=== PATIENT | female | born 1960 | race Hispanic/Latino ===

== ENCOUNTER 2017-12-19 03:10 | Inpatient (IN) | payer SELFPAY ==
[2017-12-19] MEDS ORDERED: Azithromycin 500 MG VIAL ONE (06:01)
[2017-12-19] MEDS ORDERED: Calcium Carbonate 500 MG ChewTAB PO PRN (07:46)
[2017-12-19] MEDS ORDERED: Acetaminophen 325 MG TAB PO PRN (07:46)
[2017-12-19] MEDS ORDERED: Ondansetron ODT 4 MG TAB PO PRN (07:46)
[2017-12-19] MEDS ORDERED: Mag-Al 1200 mg/1200 mg/30 ML UDCUP PO PRN (07:46)
[2017-12-19] MEDS ORDERED: Senokot 8.6 MG TAB PO PRN (07:46)
[2017-12-19] MEDS ORDERED: Ondansetron PF 4 MG/2 ML Vial IVP PRN (07:46)
[2017-12-19 08:00] VITALS: BMI 37.8
[2017-12-19] MEDS ORDERED: Prevnar 13-Val Conj/PF 0.5 ML SYRINGE IM ONE (08:15)
[2017-12-19] MEDS ORDERED: FLU VACC QS2017-18 36 mo. & older 0.5 ML SYRINGE IM ONE (08:15)
[2017-12-19] MEDS: Sodium Chloride 0.9% 1,000 ML IV SCH ×2 (09:05→18:06)
[2017-12-19] MEDS: cefTRIAXone\\ROCEPHIN 2 GM in Sodium Chloride 0.9% 100 ML IVPB SCH (09:11)
[2017-12-19 09:47] LABS: Clarity CLOUDY (Clear); Leukocyte Small (Negative); Nitrite Negative (Negative); Protein, Urine (Dipstick) Trace mg/dL (Neg-Trace); Specific Gravity, Urine 1.021 (1.002-1.036); pH, Urine 5.5 (5.0-9.0)
[2017-12-19 09:48] LABS: Bilirubin Negative (Negative); Blood, Urine Negative (Negative); Glucose, Urine (Dipstick) Negative (Negative)
[2017-12-19 09:49] LABS: Bacteria/HPF 2+ HPF (None Seen); Squamous Epithelial 21-50 HPF (0-3)
[2017-12-19 10:00] LABS: Legionella Urinary Ag Negative (Negative); Strep pneumo Urine Ag NEGATIVE (NEGATIVE)
[2017-12-19] MEDS ORDERED: hydrALAZINE 20 MG/ML VIAL SLOW IVP PRN (10:18)
[2017-12-19] MEDS ORDERED: cloNIDine 0.1 MG TAB PO PRN (10:18)
[2017-12-19 10:20] LABS: Hyaline Casts/LPF 0-3 HYALINE CAST LPF (0-3 Hyaline); Other Casts/LPF None Seen LPF (0-3 Hyaline)
[2017-12-19] MEDS ORDERED: Oseltamivir 75 MG CAP PO SCH (10:30)
[2017-12-19] MEDS: guaiFENesin ER 600 MG TAB PO SCH ×2 (10:52→21:10)
--- NOTE | 2017-12-19 11:09 | HP ---
PRIMARY CARE PROVIDER: None. The patient does not have one. CHIEF COMPLAINT: Worsening shortness of breath, fever, chills, body aches and cough. HISTORY OF PRESENTING ILLNESS: Ms. Albert is a 57-year-old female with history of asthma w ho has not been seen by any physician in multiple years; came to the [place] [facility] with the a batool-mentioned complaint. History is mainly obtained by the patient herself who is a very poor histo ewa, and supplemented by the electronic medical records. She presented to the [place] [facility] last night for complaints of one week duration of fever, chills, cough , and worsening shortness of breath. She has no inhalers or any medications for asthma at home and h as been progressively getting worse. She also endorses cough and significant pain in the chest going to her back with coughing. She reports high grade fevers. She lives with her boyfriend and dabene yane and denies any sick contacts. In the [facility], she was somewhat hypoxic, but otherwise hemodynamically stable. Initia l examination and evaluation found right lower lobe pneumonia. She was given IV antibiotic and was t ransferred to the emergency room for further evaluation and now she is being admitted with pneumonia and hypoxia secondary to that with respiratory distress. PAST MEDICAL HISTORY: Asthma. PAST SURGICAL HISTORY: Cholecystectomy and section. PSYCHIATRIC HISTORY: Depression. SOCIAL HISTORY: She lives with her boyfriend and her daughter. She says that she started working ea [employer] this week, but has not been able to return. She is uninsured and does not have a primary care physician. She denies any drug, alcohol or tobacco abuse. Nobody smokes around her in the house eit her. FAMILY HISTORY: No significant family history of premature coronary artery disease or stroke, diabet es or hypertension. MEDICATIONS: She is not on any medications at this time. ALLERGIES: No known medication allergies. REVIEW OF SYSTEMS: It is negative except for those mentioned in the history and physical. Constitutional: Weight loss or gain, ability to conduct usual activities. Skin: Rash, itching. Eyes: Double vision, pain. ENT/Mouth: Nose bleeding, neck stiffness, pain, tenderness. Cardiovascular: Palpitations, dyspnea on exertion, orthopnea. Respiratory: Shortness of breath, wheezing, cough, hemoptysis, fever or night sweats. Gastrointestinal: Poor appetite, abdominal pain, heartburn, nausea, vomiting, constipation, or diarrhea. Genitourinary: Urgency, frequency, dysuria, nocturia. Musculoskeletal: Pain, swelling. Neurologic/Psychiatric: Anxiety, depression. Allergy/Immunologic: Skin rash, bleeding tendency. PHYSICAL EXAMINATION: VITAL SIGNS: Upon presentation to our emergency room include blood pressure 115/60, pulse of 88, res pirations 24, temperature 98.4 and saturating 94% on 2 liters oxygen. GENERAL: She has visible mild respiratory distress, especially with conversation. She is easily win ded with talking small sentences. She has no pursing of the lips. She has no cyanosis. She is awak e, alert and oriented x3. HEENT: Mucous membrane is moist and pink. No oropharyngeal exudate or erythema. Head is normocepha lic and atraumatic. Pupils are equal and reactive to light and accommodation. Extraocular movements intact. NECK: Supple without any lymphadenopathy, JVD or bruit. CHEST: Evaluation shows some decreased breath sounds at bases and mild wheezing without any rales or crackles. CARDIOVASCULAR: Rate and rhythm is regular without any murmur, rubs or gallops. ABDOMEN: Soft, nontender and nondistended with positive bowel sounds. EXTREMITIES: Free of any cyanosis, clubbing, or edema. NEUROLOGIC: Nonfocal. SKIN: Free of any rashes or bruises. Feels warm and dry to touch. PSYCHIATRIC: Normal affect. Awake, alert and oriented x3. LABORATORY AND IMAGING DATA: CBC shows WBCs at 18,000 with 77% neutrophils, otherwise unremarkable. Serum chemistries show blood sugar of 151, AST 52, ALT 90, otherwise unremarkable. Her urinalysis s hows some ketones, small leukocyte esterase, 11-20 wbc's, multiple squamous epithelial cells and +2 b acteria. Urinary legionella and pneumococcal antigens are negative. Chest x-ray done at the emergen cy room is reviewed by myself and it shows some right lower lobe and infiltrates. Her rapid swab for influenza was negative. PCR is not done. IMPRESSION AND PLAN: 1. Acute respiratory distress secondary to community-acquired pneumonia. At this time, she will be treated with symptomatic and supportive care. She will be continued on the IV antibiotics. She has been started in the emergency room namely azithromycin and Rocephin. We will add inhalers in the for m of nebulizers. She will also be given Mucinex, incentive spirometry, etc. Because of her presenti ng symptoms with high fever and generalized body ache; we will start her empirically on Tamiflu inste ad of checking for the PCR, which is a rather expensive test. Her symptoms are quite consistent with influenza. Given her history of asthma, component of bronchospasm can also not be ruled out and for this reason, she will be continued on nebulizer and we will start her on low dose IV steroids. Once again, continue IV fluids. 2. Pneumonia. Continue IV antibiotic as above. 3. Sepsis, most likely secondary to pneumonia. Urinary tract infection also cannot be ruled out jamie t the urine sample looks contaminated at this time. Nevertheless, she will be treated with IV antibi otic and IV steroids and we will monitor symptoms clinically. 4. History of asthma as above. The patient will benefit from using regular inhalers and possibly le ukotriene antagonists on discharge. The patient is encouraged to follow up with a primary care physi solo post-discharge. 5. CODE STATUS: FULL CODE discussed with the patient. DISPOSITION: Ms. Albert is being admitted for acute respiratory distress secondary to pneumonia and possible asthma exacerbation as well as sepsis. Estimated length of stay is at least 2-3 midnights. Further management will depend on clinical course.
[2017-12-19] MEDS: Oseltamivir 75 MG CAP PO SCH (21:10)
[2017-12-19] MEDS: Enoxaparin Sodium 40 MG/0.4 ML SYRINGE SC SCH (21:11)
[2017-12-20] MEDS: Sodium Chloride 0.9% 1,000 ML IV SCH ×2 (02:24→08:02)
[2017-12-20 05:18] LABS: #Basophils 0.1 thou/uL (0.0-0.2); #Eosinphils 0.1 thou/uL (0.0-0.7); #Lymphocytes 1.3 thou/uL (1.20-3.40); #Monocytes 0.5 thou/uL (0.11-0.59); #Neutrophils 11.4 thou/uL (1.40-6.50); %Basophils 0.9 % (0.0-1.0); %Eosinophils 1.1 % (0.0-10.0); %Lymphocytes 9.4 % (21.0-51.0); %Monocytes 3.5 % (0.0-10.0); %Neutrophils 85.1 % (42.0-75.0); Hemoglobin 11.9 g/dL (12.0-16.0); Mean Corpuscular HGB CONC 33.1 g/dL (32.0-36.0); Mean Corpuscular Hemoglobin 29.9 pg (27.0-31.0); Mean Corpuscular Volume 90.3 fl (81.0-99.0); Mean Platelet Volume 8.9 fL (7.4-10.4); Platelet Count 318 thou/uL (130-400); RBC Distribution Width 11.9 % (11.5-14.5); Red Blood Cell (RBC) Count 3.98 mill/uL (4.20-5.40); White Blood Cell (WBC) Count 13.4 thou/uL (4.8-10.8)
[2017-12-20 05:27] LABS: Albumin 3.5 g/dL (3.5-5.0); Anion Gap 10 mmol/L (10-20); BUN (Urea Nitrogen) 10 mg/dL (9.8-20.1); BUN/Creatinine Ratio 13.16; Calc. Creatinine Clearance 115 mL/min (70-130); Calcium 9.5 mg/dL (7.8-10.44); Carbon Dioxide 27 mmol/L (22-29); Chloride 106 mmol/L (98-107); Estimated GFR-MDRD 79; Glucose 252 mg/dL (70-105); Magnesium 2.3 mg/dL (1.6-2.6); Phosphorus 3.7 mg/dL (2.3-4.7); Potassium 3.7 mmol/L (3.5-5.1); Sodium 139 mmol/L (136-145)
[2017-12-20] MEDS: Azithromycin 500 MG in Sodium Chloride 0.9% 250 ML 250 ML IVPB SCH (06:30)
[2017-12-20] MEDS: cefTRIAXone\\ROCEPHIN 2 GM in Sodium Chloride 0.9% 100 ML IVPB SCH (08:02)
[2017-12-20] MEDS: guaiFENesin ER 600 MG TAB PO SCH ×2 (08:05→20:02)
[2017-12-20] MEDS: Oseltamivir 75 MG CAP PO SCH ×2 (08:05→20:03)
[2017-12-20 08:59] LABS: Hemoglobin 12.5 g/dL (12.0-16.0)
--- NOTE | 2017-12-20 12:38 | PDOC.PN ---
- Subjective Encounter Start Date: 12/20/17 Encounter Start Time: 12:36 Subjective: feels much better.breathing easier.cough better - Objective Resuscitation Status: Resuscitation Status FULL:Full Resuscitation MAR Reviewed: Yes Vital Signs & Weight: Vital Signs (12 hours) Temp Pulse Resp BP Pulse Ox 12/20/17 08:00 97.6 F 78 16 109/66 91 L 12/20/17 06:27 81 16 93 L 12/20/17 04:00 97.6 F 71 20 117/58 L 90 L Weight Weight 193 lb 8 oz I&O: 12/19/17 12/20/17 12/21/17 06:59 06:59 06:59 Intake Total 1674 Balance 1674 Result Diagrams: 12/20/17 08:50 12/20/17 04:16 Additional Labs: Laboratory Tests 12/19/17 12/19/17 09:30 09:30 Ur L.pneumophila Ag Negative Ur Strep pneumoniae Ag NEGATIVE Phys Exam - Physical Examination Constitutional: NAD HEENT: PERRLA, moist MMs, sclera anicteric, oral pharynx no lesions Neck: no nodes, no JVD, supple, full ROM Respiratory: no wheezing, no rales, no rhonchi, clear to auscultation bilateral Cardiovascular: RRR, no significant murmur Gastrointestinal: soft, non-tender, no distention, positive bowel sounds Musculoskeletal: no edema, pulses present Neurological: non-focal, normal sensation, moves all 4 limbs Psychiatric: normal affect, A&O x 3 Skin: no rash Dx/Plan (1) CAP (community acquired pneumonia) Code(s): J18.9 - PNEUMONIA, UNSPECIFIED ORGANISM Status: Acute (2) UTI (urinary tract infection) Status: Suspected (3) Sepsis Code(s): A41.9 - SEPSIS, UNSPECIFIED ORGANISM Status: Acute - Plan continue antibiotics, respiratory therapy, incentive spirometry, out of bed/ ambulate, DVT proph w/SCDs Cont ABx,nebs,steroids,Empiric tamiflu d/t clinical suspicion -: wean off O2 as tolerated -: will need inhalers for home parris Dc * . Review of Systems - Review of Systems Constitutional: negative: fever, chills, sweats, weakness, malaise, other ENT: negative: Ear Pain, Ear Discharge, Nose Pain, Nose Discharge, Nose Congestion, Mouth Pain, Mouth Swelling, Throat Pain, Throat Swelling, Other Respiratory: negative: Cough, Dry, Shortness of Breath, Hemoptysis, SOB with Excertion, Pleuritic Pain, Sputum, Wheezing Cardiovascular: negative: chest pain, palpitations, orthopnea, paroxysmal nocturnal dyspnea, edema, light headedness, other Gastrointestinal: negative: Nausea, Vomiting, Abdominal Pain, Diarrhea, Constipation, Melena, Hematochezia, Other Genitourinary: negative: Dysuria, Frequency, Incontinence, Hematuria, Retention , Other Musculoskeletal: negative: Neck Pain, Shoulder Pain, Arm Pain, Back Pain, Hand Pain, Leg Pain, Foot Pain, Other Skin: negative: Rash, Lesions, Shashi, Bruising, Other Neurological: negative: Weakness, Numbness, Incoordination, Change in Speech, Confusion, Seizures, Other - Medications/Allergies Allergies/Adverse Reactions: Allergies Allergy/AdvReac Type Severity Reaction Status Date / Time No Known Allergies Allergy Unverified 09/17/15 14:07 Medications: Current Medications Acetaminophen (Tylenol) 650 mg PO Q4H PRN PRN Reason: Headache/Fever or Pain Al Hydroxide/Mg Hydroxide (Maalox) 30 ml PO Q6H PRN PRN Reason: Heartburn or Indigestion Albuterol/Ipratropium (Duoneb) 3 ml NEB [id number] PRN PRN Reason: SOB &/or Wheezing Albuterol/Ipratropium (Duoneb) 3 ml NEB [id number] [facility] Last Admin: 12/20/17 06:27 Dose: 3 ml Calcium Carbonate (Tums) 1,000 mg PO Q4H PRN PRN Reason: Heartburn or Indigestion Clonidine (Catapres) 0.1 mg PO Q4H PRN PRN Reason: sbp>160 Enoxaparin Sodium (Lovenox) 40 mg SC 2100 [facility] [place] Last Admin: 12/19/17 21:11 Dose: 40 mg Guaifenesin (Mucinex) 1,200 mg PO Q12HR [facility] [place] Last Admin: 12/20/17 08:05 Dose: 1,200 mg Hydralazine HCl (Apresoline) 10 mg SLOW IVP Q4H PRN PRN Reason: SBP>170 Azithromycin 500 mg/ Sodium (Chloride) 250 mls @ 250 mls/hr IVPB 0600 [facility] [place] Last Admin: 12/20/17 06:30 Dose: 250 mls Ceftriaxone Sodium 2 gm/ (Sodium Chloride) 100 mls @ 200 mls/hr IVPB 0800 [facility] [place] Last Admin: 12/20/17 08:02 Dose: 100 mls Sodium Chloride (Normal Saline 0.9%) 1,000 mls @ 125 mls/hr IV .Q8H [facility] [place] Stop: 12/21/17 07:47 Last Admin: 12/20/17 08:02 Dose: Not Given Methylprednisolone Sodium Succinate (Solu-Medrol) 40 mg IVP Q8H [facility] [place] Last Admin: 12/20/17 09:42 Dose: 40 mg Ondansetron HCl (Zofran Odt) 4 mg PO Q6H PRN PRN Reason: Nausea/Vomiting Ondansetron HCl (Zofran) 4 mg IVP Q6H PRN PRN Reason: Nausea/Vomiting Oseltamivir Phosphate (Tamiflu) 75 mg PO BID [facility] [place] Stop: 12/23/17 21:01 Last Admin: 12/20/17 08:05 Dose: 75 mg Senna (Senokot) 2 tab PO HSPRN PRN PRN Reason: Constipation
[2017-12-20] MEDS: Enoxaparin Sodium 40 MG/0.4 ML SYRINGE SC SCH (20:02)
[2017-12-21] MEDS: Azithromycin 500 MG in Sodium Chloride 0.9% 250 ML 250 ML IVPB SCH (05:15)
[2017-12-21] MEDS: cefTRIAXone\\ROCEPHIN 2 GM in Sodium Chloride 0.9% 100 ML IVPB SCH (08:18)
[2017-12-21] MEDS: guaiFENesin ER 600 MG TAB PO SCH ×2 (08:26→20:59)
[2017-12-21] MEDS: Oseltamivir 75 MG CAP PO SCH ×2 (08:26→20:59)
--- NOTE | 2017-12-21 11:46 | PDOC.PN ---
- Subjective Encounter Start Date: 12/21/17 Encounter Start Time: 11:44 Subjective: weak, no fever,chills - Objective Resuscitation Status: Resuscitation Status FULL:Full Resuscitation MAR Reviewed: Yes Vital Signs & Weight: Vital Signs (12 hours) Temp Pulse Resp BP Pulse Ox 12/21/17 08:05 98.1 F 67 16 118/60 92 L 12/21/17 08:00 98.1 F 67 16 94 L 12/21/17 07:26 72 16 94 L 12/21/17 05:04 97.5 F L 65 20 134/64 93 L 12/21/17 01:08 98.0 F 77 20 117/55 L 93 L 12/21/17 00:49 66 16 99 Weight Weight 193 lb 8 oz I&O: 12/20/17 12/21/17 12/22/17 06:59 06:59 06:59 Intake Total 1674 3620 Balance 1674 3620 Result Diagrams: 12/20/17 08:50 12/20/17 04:16 Phys Exam - Physical Examination Constitutional: NAD Neck: no JVD Respiratory: clear to auscultation bilateral Cardiovascular: RRR, no significant murmur Gastrointestinal: soft, positive bowel sounds Musculoskeletal: no edema Dx/Plan (1) CAP (community acquired pneumonia) Code(s): J18.9 - PNEUMONIA, UNSPECIFIED ORGANISM Status: Acute Qualifiers: Laterality: left Lung location: unspecified part of lung Qualified Code(s ): J18.9 - Pneumonia, unspecified organism (2) UTI (urinary tract infection) Status: Suspected Qualifiers: Urinary tract infection type: site unspecified (3) Asthma exacerbation Code(s): J45.901 - UNSPECIFIED ASTHMA WITH (ACUTE) EXACERBATION Status: Acute - Plan cont nebs, antibx -: deescalate steroids -: PA&L cxr -: / Blood C&S micrococcus- consider contaminate * .
--- NOTE | 2017-12-21 15:15 | RAD ---
PA AND LATERAL CHEST: HISTORY: Followup of pneumonia. COMPARISON: 12/18/2017 FINDINGS: Heart size and mediastinum are within normal limits. The haziness within the lingula is actually les s prominent on today's study, now with a more apparent area of parenchymal density in the right base, suggesting some minimal pneumonic change, difficult to visualize on the lateral view, but appears to be a real finding. IMPRESSION: 1. Minimal haziness to the lingula is less prominent than on the previous exam. No definite infiltr ative process in this region. 2. Minimal infiltrate seen within the right lung base. POS: C
[2017-12-21] MEDS: Enoxaparin Sodium 40 MG/0.4 ML SYRINGE SC SCH (20:59)
[2017-12-22] MEDS: Azithromycin 500 MG in Sodium Chloride 0.9% 250 ML 250 ML IVPB SCH (05:24)
[2017-12-22] MEDS: cefTRIAXone\\ROCEPHIN 2 GM in Sodium Chloride 0.9% 100 ML IVPB SCH (07:34)
[2017-12-22] MEDS: guaiFENesin ER 600 MG TAB PO SCH ×2 (07:35→20:24)
[2017-12-22] MEDS: Oseltamivir 75 MG CAP PO SCH (07:35)
--- NOTE | 2017-12-22 11:59 | PDOC.PN ---
- Subjective Encounter Start Date: 12/22/17 Encounter Start Time: 11:57 Subjective: no sob, mild cough - Objective Resuscitation Status: Resuscitation Status FULL:Full Resuscitation MAR Reviewed: Yes Vital Signs & Weight: Vital Signs (12 hours) Temp Pulse Resp BP BP Pulse Ox 12/22/17 11:31 97.6 F 69 16 131/63 12/22/17 08:00 97.2 F L 72 20 96 12/22/17 07:34 72 20 96 12/22/17 07:20 97.6 F 60 16 127/65 95 12/22/17 00:30 61 16 97 Weight Weight 193 lb 8 oz I&O: 12/21/17 12/22/17 12/23/17 06:59 06:59 06:59 Intake Total 3620 500 240 Balance 3620 500 240 Result Diagrams: 12/20/17 08:50 12/20/17 04:16 Phys Exam - Physical Examination Neck: no JVD Respiratory: no wheezing, no rales Cardiovascular: RRR, no significant murmur Gastrointestinal: soft, positive bowel sounds Musculoskeletal: no edema Dx/Plan (1) CAP (community acquired pneumonia) Code(s): J18.9 - PNEUMONIA, UNSPECIFIED ORGANISM Status: Acute Qualifiers: Laterality: left Lung location: unspecified part of lung Qualified Code(s ): J18.9 - Pneumonia, unspecified organism (2) UTI (urinary tract infection) Status: Suspected Qualifiers: Urinary tract infection type: site unspecified (3) Asthma exacerbation Code(s): J45.901 - UNSPECIFIED ASTHMA WITH (ACUTE) EXACERBATION Status: Acute - Plan cont nebs -: DC iv antibx, start omnicef po -: DC solumedrol, start po prednisone * .
[2017-12-22] MEDS: Cefdinir 300 MG CAP PO SCH (20:24)
[2017-12-22] MEDS: Enoxaparin Sodium 40 MG/0.4 ML SYRINGE SC SCH (20:25)
[2017-12-23] MEDS ORDERED: predniSONE 50 MG TAB PO SCH (08:00)
[2017-12-23] MEDS: Cefdinir 300 MG CAP PO SCH (08:22)
[2017-12-23] MEDS: guaiFENesin ER 600 MG TAB PO SCH (08:23)
[2017-12-23 08:38] VITALS: BP 122/60; TEMP 97.2
--- NOTE | 2017-12-23 11:02 | DIS ---
DATE OF ADMISSION: 12/19/2017 DATE OF DISCHARGE: 12/23/2017 [facility] Call admission for [facility] [place], has no PCP. FINAL DIAGNOSES: Acute respiratory failure with hypoxemia, resolved; pneumonia, asthma, and urinary tray tract infection. DISCHARGE MEDICATIONS: Prednisone Dosepak as directed, Cefdinir 300 mg p.o. b.i.d., Ventolin HFA 2 p uffs q.6 hourly p.r.n. ALLERGIES: None. CODE STATUS: FULL. PENDING AT THE TIME OF DISCHARGE: Nothing. DIET: Regular. HOSPITAL COURSE: The patient admitted to [facility] through [facility] with fever, chills, and cough. She was seen in the emergency room , found to have a right lower lobe infiltrate. Influenza swab was negative. Admitting laboratory, w garrison count 13.4, hemoglobin 11.9, and platelet count 318,000. Serology, pneumophila negative. UA 11 -20 white cells. Comp metabolic profile normal except for blood sugar 252. Microbiology, cultures n egative including urine. The patient was treated with IV antibiotics, ceftriaxone, Zithromax, nebs. She has improved dramatically during her hospital stay. Her chest is clear. Vital signs are stable . She is being discharged home. Her blood sugars were elevated during the hospital, but she was rec eiving steroids. CONSULTATIONS: None. PROCEDURES: None. She has been discharged. Nursing services have been advised she needs a PCP for followup. Prescript ions have been written. At followup, her blood sugar will need to be checked as she may have underly ing diabetes mellitus.
[2017-12-23] MEDS ORDERED: Prevnar 13-Val Conj/PF 0.5 ML SYRINGE IM ONE (12:00)
[2017-12-23] MEDS ORDERED: FLU VACC QS2017-18 36 mo. & older 0.5 ML SYRINGE IM ONE (12:00)
== END 2017-12-23 14:56 | disposition home or self-care (01) | DRG 193 ==
LOC: ERS 03:10 → T4-B 07:45
PROVIDERS: ADMIT Internal Medicine; ATTEND Internal Medicine
DX: J18.9 Pneumonia, unspecified organism (principal); J96.01 Acute respiratory failure with hypoxia; N39.0 Urinary tract infection, site not specified; J45.901 Unspecified asthma with (acute) exacerbation; Z23 Encounter for immunization; F32.9 Major depressive disorder, single episode, unspecified
CPT/HCPCS: 36415; 36416; 71046; 80069; 81003; 81015; 83735; 85025; 87086; 87899; 90471; 90670; 94640; 96374; G0009; J0456; J0696; J1650; J2920; J7050; J7620

== ENCOUNTER 2025-08-11 22:52 | Inpatient (IN) | payer OTHER ==
[2025-08-11] MEDS ORDERED: Ondansetron PF 4 MG/2 ML Vial IVP PRN (23:53)
[2025-08-12 00:45] VITALS: BMI 35.6
[2025-08-12] MEDS ORDERED: Dextrose 50% Abboject 50 ML SYRINGE SLOW IVP PRN (01:53)
[2025-08-12] MEDS ORDERED: Glucagon 1 MG/ML KIT IM PRN (01:53)
[2025-08-12 04:08] LABS: #Basophils Less than 0.03 10x3/uL (0.0-0.2); #Eosinophils 0.15 10x3/uL (0.0-0.7); #Monocytes 0.60 10x3/uL (0.11-0.59); #Neutrophils 5.98 10x3/uL (1.40-6.50); %Basophils 0.2 % (0.0-1.0); %Eosinophils 1.4 % (0.0-10.0); %Lymphocytes 37.5 % (21.0-51.0); %Monocytes 5.5 % (0.0-10.0); %Neutrophils 55.1 % (42.0-75.0); Hematocrit 37.6 % (36.0-47.0); Hemoglobin 12.5 g/dL (12.0-16.0); Mean Corpuscular Hemoglobin 28.0 pg (27.0-31.0); Mean Corpuscular Volume 84.1 fL (78.0-98.0); Platelet Count 291 10x3/uL (130-400); Red Blood Cell (RBC) Count 4.47 mill/uL (4.20-5.40); White Blood Cell (WBC) Count 10.84 10x3/uL (4.8-10.8)
[2025-08-12 04:35] LABS: Anion Gap 12 mmol/L (10-20); BUN (Urea Nitrogen) 15 mg/dL (9.8-20.1); Calc. Creatinine Clearance 120 mL/min (70-130); Calcium 9.3 mg/dL (7.8-10.44); Carbon Dioxide 25 mmol/L (23-31); Cardiac Risk 3.1 (Less than 4.5); Chloride 105 mmol/L (98-107); Cholesterol 143 mg/dl (< 200 Desired); Glucose 117 mg/dL (80-115); HDL Cholesterol 46 mg/dL (>60 Neg Risk); LDL Cholesterol, Calculated 83 mg/dL; Potassium 3.8 mmol/L (3.5-5.1); Sodium 138 mmol/L (136-145); Triglycerides 70 mg/dL (Less than 150)
[2025-08-12] MEDS: Enoxaparin 40 MG (0.4 mL) SYRINGE SC SCH (09:03)
[2025-08-12] MEDS: Aspirin 81 mg Enteric Coated Tablet PO SCH (09:03)
[2025-08-12] MEDS ORDERED: Cyclobenzaprine 10 MG TAB PO PRN (16:35)
[2025-08-12] MEDS: FLU (Fluarix Triv) 25-26 (6MOS UP)/PF 45 MCG/0.5 ML Syringe IM ONE (17:25)
[2025-08-13 04:55] LABS: #Basophils Less than 0.03 10x3/uL (0.0-0.2); #Eosinophils Less than 0.03 10x3/uL (0.0-0.7); #Monocytes 0.04 10x3/uL (0.11-0.59); #Neutrophils 7.48 10x3/uL (1.40-6.50); %Basophils 0.1 % (0.0-1.0); %Eosinophils 0.0 % (0.0-10.0); %Lymphocytes 14.9 % (21.0-51.0); %Monocytes 0.4 % (0.0-10.0); %Neutrophils 84.2 % (42.0-75.0); Hematocrit 40.8 % (36.0-47.0); Hemoglobin 13.6 g/dL (12.0-16.0); Mean Corpuscular Hemoglobin 28.5 pg (27.0-31.0); Mean Corpuscular Volume 85.4 fL (78.0-98.0); Platelet Count 302 10x3/uL (130-400); Red Blood Cell (RBC) Count 4.78 mill/uL (4.20-5.40); White Blood Cell (WBC) Count 8.90 10x3/uL (4.8-10.8)
[2025-08-13 05:29] LABS: ALT (SGPT) 17 U/L (Less than 34); AST (SGOT) 18 U/L (11-34); Albumin 3.6 g/dL (3.1-4.5); Alkaline Phosphatase 103 U/L (40-110); Anion Gap 12 mmol/L (10-20); BUN (Urea Nitrogen) 15 mg/dL (9.8-20.1); Bilirubin, Total 0.3 mg/dL (0.3-1.2); Calc. Creatinine Clearance 120 mL/min (70-130); Calcium 9.7 mg/dL (7.8-10.44); Carbon Dioxide 26 mmol/L (23-31); Chloride 105 mmol/L (98-107); Globulin 3.5 g/dL (2.4-3.5); Glucose 192 mg/dL (80-115); Potassium 3.8 mmol/L (3.5-5.1); Sodium 139 mmol/L (136-145)
[2025-08-13 07:54] VITALS: TEMP 97.7
[2025-08-13] MEDS: PNEUMOC 20-VAL CONJ-DIP CRM/PF 0.5 ML SYRINGE IM ONE (08:27)
[2025-08-13] MEDS: Acetaminophen 325 MG TAB PO PRN (08:34)
[2025-08-13 12:01] VITALS: BP 128/66
== END 2025-08-13 12:18 | disposition home or self-care (01) | DRG 552 ==
LOC: 2SE 23:39 → OBSVTOIN 08-12 20:38
PROVIDERS: ADMIT Internal Medicine; ATTEND Student in an Organized Health Care Education/Training Program
PROC: 3E0234Z Introduction of Serum, Toxoid and Vaccine into Muscle, Percutaneous Approach (ICD-10-PCS; principal; 2025-08-12)
DX: M48.02 Spinal stenosis, cervical region (principal); G95.29 Other cord compression; M54.12 Radiculopathy, cervical region; E11.9 Type 2 diabetes mellitus without complications; M06.9 Rheumatoid arthritis, unspecified; G43.711 Chronic migraine without aura, intractable, with status migrainosus; Z79.52 Long term (current) use of systemic steroids; Z79.899 Other long term (current) drug therapy; Z98.891 History of uterine scar from previous surgery; Z86.73 Personal history of transient ischemic attack (TIA), and cerebral infarction without residual deficits; Z79.84 Long term (current) use of oral hypoglycemic drugs; Z23 Encounter for immunization
CPT/HCPCS: 36415; 36416; 70551; 72141; 80048; 80053; 80061; 83036; 85025; 90471; 90677; 96372; 96374; 96375; G0009; G0378; J1650; J1815; J2060; J2919